=== PATIENT | female | born 1970 | race Caucasian/White ===

== ENCOUNTER 2017-09-19 16:29 | Emergency (ER) | payer SELFPAY ==
[~2017-09-19] VITALS: Ht 154.9 cm; Wt 65.0 kg
[2017-09-19] MEDS ORDERED: KETOROLAC 60MG/2ML VIAL IM STA (19:03)
[2017-09-19 21:26] VITALS: BP 136/80
== END 2017-09-19 21:27 | disposition home or self-care (01) ==
LOC: ER 16:29
DX: S20.219A Contusion of unspecified front wall of thorax, initial encounter (principal); R03.0 Elevated blood-pressure reading, without diagnosis of hypertension; V49.50XA Passenger injured in collision with unspecified motor vehicles in traffic accident, initial encounter; Y93.89 Activity, other specified; Y92.410 Unspecified street and highway as the place of occurrence of the external cause
CPT/HCPCS: 71045; 93005; 96372; 99284; J1885